=== PATIENT | female | born 1985 | race Caucasian/White ===

== ENCOUNTER 2016-10-18 21:42 | Emergency (ER) | payer MEDICAID ==
--- NOTE | 2016-10-18 22:44 | ED Physician Chart ---
Chief Complaint/HPI - Patient Information Date Seen:: 10/18/16 Time Seen:: 22:15 Chief Complaint:: Burning sensation and swelling in R hand and forearm this evening History of Present Illness:: Pt noticed swelling and burning sensation in R hand at about 7 pm today while she was repotting her plants. She felt something crawling in her hand and smashed it. She was not sure what was it as she was in the dark. No fever, dyspnea, abdominal pain/cramp, or N/V/D. Pt took 25 mg of Benadryl with improvement of her symptoms. Her R hand and forearm swelling has much decreased. No RUE weakness or definite numbness. Allergies:: Allergies Allergy/AdvReac Type Severity Reaction Status Date / Time No Known Allergies Allergy Verified 10/18/16 22:12 Vitals:: Vital Signs - 8 hr 10/18/16 21:55 Temp 98.0 F HR 68 RR 20 BP 130/93 O2 Sat % 99 Historian:: Patient Family MD/PCP:: Dr. Knox LMP:: 10/16/16 Review:: Nurse's Note Reviewed Review of Systems - Review of Systems General/Constitutional: No fever, No chills, No weight loss, Edema (transient edema in R hand and forearm.) Skin: No skin lesions, No rash, No bruising Head: No headache, No light-headedness Eyes: No loss of vision, No pain, No diplopia ENT: No earache, No nasal drainage, No sore throat, No tinnitus Neck: No neck pain, No swelling, No thyromegaly, No stiffness, No mass noted Cardio Vascular: No chest pain, No palpitations Pulmonary: No SOB, No wheezing GI: No nausea, No vomiting, No diarrhea, No pain, No melena, No hematochezia, No constipation, No hematemesis G/U: No dysuria, No frequency, No hematuria 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: Vaginal discharge, Abnormal vaginal bleeding Musculoskeletal: No bone or joint pain, No back pain, No muscle pain Endocrine: No polyuria, No polydipsia Psychiatric: Prior psych history, No depression, No auditory hallucination, No visual hallucination Hematopoietic: No bruising, No lymphadenopathy Allergic/Immuno: No urticaria, No angioedema Neurological: No syncope, No focal symptoms, No weakness, No paresthesia, No headache, No seizure, No dizziness, No confusion, No vertigo Past Medical History - Past Medical History Past Medical History: No significant medical hx Family History: Diabetes Melitus (mother.), HTN (mother), Cancer (mother, MGM, sister) Social History: Non Smoker, Alcohol (occasional), No Drug Use, Single, Employed , Other (Lives with significant other.) 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 Surgical History: Cholecystectomy (Laparoscopic cholecystectomy about 9 y/a) Psychiatricy History: Depression (prior h/o depression) Medication: Reviewed Family Medical History - Family Member Mother History Unknown: Yes Hx Family Cancer: (ca of breast, uterus) Hx Family Congestive Heart Failure: (CHF) Hx Family Hypertension: (HTN) Hx Family Diabetes: (Diabetes) Physical Exam - Physical Examination General/Constitutional: Awake, Well-developed, well-nourished, Alert, No distress, GCS 15, Non-toxic appearing, Ambulatory Other Gen/Cons comments:: Breathes comfortably, speaks clearly, interacts normally, and ambulates without difficulty. Head: Atraumatic Eyes: Lids, conjuctiva normal, PERRL, EOMI Skin: No rash, No skin lesions, No ecchymosis, Well hydrated, No lymphadenopathy Other Skin comments:: see also Extremities exam. ENMT: External ears, nose nl, Nasal exam nl, Lips, teeth, gums nl, Oropharynx nl Neck: Nontender, Full ROM w/o pain, No nuchal rigidity, No mass, No stridor Respiratory: Nl effort/Exclusion, Clear to Auscultation, No Wheeze/Rhonchi/Rales Cardio Vascular: RRR, No murmur, gallop, rubs GI: No tenderness/rebounding/guarding, No organomegaly, Normal BS's, Nondistended, No mass/bruits Other Extremities comments:: RUE: FROM of all joints. No erythema, open wound, or ecchymosis. No detectable motor/sensory/vascular deficit. Good distal pulse and capillary refill. Neuro/Psych: Alert/oriented (oriented x 3), Judgement/insight normal, Mood normal, Normal gait, No focal deficits ED Septic Shock - . Is Septic Shock (SBP<90, OR Lactate>4 mmol\L) present?: No - <6hrs of presentation: Vital Signs: Vital Signs - 8 hr 10/18/16 21:55 Temp 98.0 F HR 68 RR 20 BP 130/93 O2 Sat % 99 Reassessment (Disposition) - Reassessment Reassessment:: 2332 Pt feels much better. Pt denies any itchiness, pain, or swelling in R hand or forearm/arm. No dyspnea. No N/V. No lightheadedness. Pt requests to go home now and does not want further observation/management in hospital. Aftercare instructions have been given. Her significant other Alek will drive her home. Reassessment Condition:: Improved - Diagnosis Diagnosis:: Transient allergic reaction probably related to insect bite, stable and much improved. - Aftercare/Follow up Instructions Aftercare/Follow-Up Instructions:: Refer to Discharge Instructions Notes:: Bedrest for now. Benadryl 50 mg po q6h prn allergic reaction. Drowsiness precautions given with the use of Benadryl. F/U with PCP in one day for recheck. Return to ER immediately if condition worsens or if any further questions/problems. Medication Prescribed:: None - Patient Disposition Discharge/Transfer:: Home Time:: 23:40 Condition at Disposition:: Stable, Improved ED Discharge Plan - Patient Disposition Admit/Discharge/Transfer: PT DISCHARGED HOME Condition at Disposition: Improved Instructions: Allergies, [id number], Insect Bite, [id number]
== END 2016-10-18 23:49 | disposition home or self-care (01) ==
LOC: ER 21:42
DX: T78.40XA Allergy, unspecified, initial encounter (principal); Z90.49 Acquired absence of other specified parts of digestive tract; X58.XXXA Exposure to other specified factors, initial encounter
CPT/HCPCS: J1200; Z7502; Z7610

== ENCOUNTER 2016-12-13 00:34 | Emergency (ER) | payer MEDICAID ==
--- NOTE | 2016-12-13 01:29 | ED Physician Chart ---
ED Chief Complaint/HPI - Patient Information Date Seen:: 12/13/16 Time Seen:: 01:02 Chief Complaint:: ANXIETY History of Present Illness:: THIS IS A 31 YO FEMALE WHO STATES THAT SHE THINKS SHE IS HAVING A REACTION TO SOME PRODUCTS THAT SHE TOOK FROM A STORE. SHE DENIES FEVER, COUGH, SORE THROAT AND VOMITING. SHE STATES THAT SHE FEEL RESTLESS AND HAS TROUBLE SLEEPING. Allergies:: Allergies Allergy/AdvReac Type Severity Reaction Status Date / Time No Known Allergies Allergy Verified 12/13/16 01:00 Vitals:: Vital Signs - 8 hr 12/13/16 00:35 Temp 98.1 F HR 81 RR 18 BP 148/92 O2 Sat % 99 Historian:: Patient Review:: Nurse's Note Reviewed, Old Chart Reviewed ED Review of Systems - Review of Systems General/Constitutional: No fever, No chills, No weight loss, No weakness, No diaphoresis, No edema, No loss of appetite Skin: No skin lesions, No rash, No bruising Head: No headache, No light-headedness Eyes: No loss of vision, No pain, No diplopia ENT: No earache, No nasal drainage, No sore throat, No tinnitus Neck: No neck pain, No swelling, No thyromegaly, No stiffness, No mass noted Cardio Vascular: No chest pain, No palpitations, No PND, No orthopnea, No edema Pulmonary: No SOB, No cough, No sputum, No wheezing GI: No nausea, No vomiting, No diarrhea, No pain, No melena, No hematochezia, No constipation, No hematemesis G/U: No dysuria, No frequency, No hematuria Musculoskeletal: No bone or joint pain, No back pain, No muscle pain Endocrine: No polyuria, No polydipsia Psychiatric: Prior psych history, No depression, No anxiety, No suicidal ideation Hematopoietic: No bruising, No lymphadenopathy Allergic/Immuno: No urticaria, No angioedema Neurological: No syncope, No focal symptoms, No weakness, No paresthesia, No headache, No seizure, No dizziness, No confusion, No vertigo ED Past Medical History - Past Medical History Obtainable: Yes Past Medical History: No significant medical hx Family History: None Social History: Smoker, No Alcohol, No Drug Use, Employed Surgical History: Cholecystectomy Psychiatricy History: Depression Medication: Reviewed Family Medical History - Family Member Mother History Unknown: Yes Hx Family Cancer: (ca of breast, uterus) Hx Family Congestive Heart Failure: (CHF) Hx Family Hypertension: (HTN) Hx Family Diabetes: (Diabetes) ED Physical Exam - Physical Examination General/Constitutional: Awake, Well-developed, well-nourished, Alert, No distress, GCS 15, Non-toxic appearing, Ambulatory Head: Atraumatic Eyes: Lids, conjuctiva normal, PERRL, EOMI Skin: Nl inspection, No rash, No skin lesions, No ecchymosis, Well hydrated, No lymphadenopathy ENMT: External ears, nose nl, Nasal exam nl, Lips, teeth, gums nl Neck: Nontender, Full ROM w/o pain, No JVD, No nuchal rigidity, No bruit, No mass, No stridor Respiratory: Nl effort/Exclusion, Clear to Auscultation, No Wheeze/Rhonchi/Rales Cardio Vascular: RRR, No murmur, gallop, rubs, NL S1 S2 GI: No tenderness/rebounding/guarding, No organomegaly, No hernia, Normal BS's, Nondistended, No mass/bruits, No McBurney tenderness : No CVA tenderness Extremities: No tenderness or effusion, Full ROM, normal strength in all extremities, No edema, Normal digits & nails Neuro/Psych: Alert/oriented, DTR's symmetric, Normal sensory exam, Normal motor strength, Judgement/insight normal, Normal gait, No focal deficits Other Neuro/Psych comments:: VERY GITTERY Misc: normal gait, Normal back, No paraspinal tenderness ED Labs/Radiology/EKG Results - Lab Results Results: Abnormal Lab Results 12/13/16 12/13/16 12/13/16 01:26 01:26 01:30 WBC 11.9 H RBC 4.88 Hgb 14.4 Hct 42.4 MCV 86.9 MCH 29.4 MCHC Differential 33.9 RDW 13.7 Plt Count 297 MPV 7.6 Neutrophils % 69.9 Lymphocytes % 22.0 Monocytes % 5.9 Eosinophils % 1.7 Basophils % 0.5 Sodium 136 Potassium 3.6 Chloride 109 H Carbon Dioxide 21.6 Anion Gap 9.0 BUN 13 Creatinine 0.7 Est GFR ( Amer) > 60.0 Est GFR (Non-Af Amer) > 60.0 BUN/Creatinine Ratio 18.6 Glucose 107 H Calcium 9.8 Total Bilirubin 0.3 AST 14 ALT 19 Alkaline Phosphatase 83 Total Protein 7.4 Albumin 4.3 Globulin 3.1 Albumin/Globulin Ratio 1.4 Urine Source CLEAN C Urine Color YELLOW Urine Clarity CLEAR Urine pH 5.5 Ur Specific [place] 1.010 Urine Protein NEGATIVE Urine Glucose (UA) NEGATIVE Urine Ketones NEGATIVE Urine Blood NEGATIVE Urine Nitrate NEGATIVE Urine Bilirubin NEGATIVE Urine Urobilinogen 0.2 Ur Leukocyte Esterase NEGATIVE Urine RBC NONE SEEN Urine WBC NONE SEEN Ur Epithelial Cells NONE SEEN Urine Bacteria NONE SEEN ED Assessment - Assessment General Assessment: ANXIETY REACTION ED Septic Shock - . Is Septic Shock (SBP<90, OR Lactate>4 mmol\L) present?: No - <6hrs of presentation: Vital Signs: Vital Signs - 8 hr 12/13/16 00:35 Temp 98.1 F HR 81 RR 18 BP 148/92 O2 Sat % 99 ED Reassessment (Disposition) - Reassessment Reassessment Condition:: Unchanged - Diagnosis Diagnosis:: ANXIETY REACTION - Aftercare/Follow up Instructions Aftercare/Follow-Up Instructions:: Counseled pt regarding lab results/diagnosis & need follow up, Refer to Discharge Instructions, Counseled pt & family regarding lab results/diagnosis & need follow up - Patient Disposition Discharge/Transfer:: Home Condition at Disposition:: Stable, Improved ED Discharge Plan - Patient Disposition Admit/Discharge/Transfer: PT DISCHARGED HOME Condition at Disposition: Improved
[2016-12-13 01:48] LABS: ALB/GLOB RATIO 1.4 (1.0-1.8); ALKALINE PHOSPHATASE 83 U/L (34-104); BILIRUBIN,TOTAL 0.3 mg/dL (0.3-1.0); BUN - UREA NITROGEN 13 mg/dL (7-25); BUN/CREATININE RATIO 18.6; CALCIUM SERUM 9.8 mg/dL (8.6-10.3); CARBON DIOXIDE 21.6 mEq/L (21.0-31.0); CHLORIDE 109 mEq/L (98-107); CREATININE - SERUM 0.7 mg/dL (0.6-1.2); GLUCOSE 107 mg/dL (70-105); NEUTROPHILE ABSOLUTE 8.3 Th/cmm (1.8-8.0); POTASSIUM SERUM 3.6 mEq/L (3.5-5.1); RED BLOOD COUNT 4.88 Mil/cmm (3.80-5.10); SGOT 14 U/L (13-39); SGPT/ALT 19 U/L (7-52); SODIUM SERUM 136 mEq/L (136-145)
[2016-12-13 01:49] LABS: URINE BILIRUBIN NEGATIVE (NEGATIVE); URINE BLOOD NEGATIVE (NEGATIVE); URINE GLUCOSE (UA) NEGATIVE (NEGATIVE); URINE KETONE NEGATIVE (NEGATIVE); URINE PH 5.5 (4.6 - 8.0); URINE PROTEIN NEGATIVE (NEGATIVE); URINE UROBILINOGEN 0.2 E.U./dL (0.2 - 1.0)
[2016-12-13 01:51] LABS: % BASOPHILS 0.5 % (0.0-2.0); % EOSINOPHILS 1.7 % (0.0-5.0); % MONOCYTES 5.9 % (2.0-10.0); % NEUTROPHILS 69.9 % (40.0-80.0); HEMATOCRIT 42.4 % (41.0-60); HEMOGLOBIN 14.4 gm/dL (12-16); MEAN CELL VOLUME 86.9 fl (81-100); MEAN CORPUSCULAR HEMOGLOBIN 29.4 pg (27.0-31.0); MEAN CORPUSCULAR HGB CONC 33.9 pg (28.0-36.0); MEAN PLATELET VOLUME 7.6 fl; PLATELET COUNT 297 Th/cmm (150-400); RED CELL DISTRIBUTION WIDTH 13.7 % (11.5-20.0); WHITE BLOOD COUNT 11.9 Th/cmm (4.8-10.8)
[2016-12-13 02:01] LABS: URINE COLOR YELLOW
[2016-12-13 02:03] LABS: URINE BACTERIA NONE SEEN /hpf (NONE SEEN); URINE EPITHELIAL CELLS NONE SEEN /lpf (FEW); URINE RBC NONE SEEN /hpf (0-5); URINE WBC NONE SEEN /hpf (0-5)
[2016-12-13 02:29] LABS: INR 0.9 (0.5-1.4); PROTHROMBIN TIME (TEST) 9.3 SECONDS (9.5-11.5)
== END 2016-12-13 02:21 | disposition home or self-care (01) ==
LOC: ER 00:34
DX: F41.9 Anxiety disorder, unspecified (principal); F17.200 Nicotine dependence, unspecified, uncomplicated; Z90.49 Acquired absence of other specified parts of digestive tract
CPT/HCPCS: 99284; 96372; 84484; 36415; 84443; 86592; 85025; 85610; 81001; 83036; 80053; J2930; Z7502